=== PATIENT | male | born 1945 | race Caucasian/White ===

== ENCOUNTER 2018-12-25 19:16 | Emergency (ER) | payer OTHER ==
[2018-12-25] MEDS ORDERED: NA CHLORIDE 0.9% 500 ML ONE (19:55)
[2018-12-25] MEDS ORDERED: ONDANSETRON 4 MG/2 ML VIAL ONE ×2 (19:55→23:15)
[2018-12-25 19:56] LABS: Absolute Lymphocytes (CBC) 2.4 K/uL (0.7-4.9); Absolute Monocytes 0.8 K/uL (0.1-1.3); Absolute Neutrophil 4.2 K/uL (1.8-8.0); Eosinophils % 6.6 % (0-4.4); Hematocrit 39.1 % (39.6-49.0); Lymphocytes % 30.1 % (15.3-44.8); MPV 7.7 fL (7.6-11.3); RBC Red Blood Cell Count 4.02 M/uL (4.33-5.43)
[2018-12-25] MEDS ORDERED: FAMOTIDINE 20 MG/2 ML VIAL IV ONE (19:56)
[2018-12-25] MEDS ORDERED: NA CHLORIDE 0.9% 1,000 ML ONE (19:56)
[2018-12-25 19:57] LABS: Protime INR 1.02
--- NOTE | 2018-12-25 20:06 | RAD REPORT ---
EXAM DESCRIPTION: CT - Head Brain Wo Cont - 12/25/2018 7:58 pm CLINICAL HISTORY: nausea/vomiting;Dizziness COMPARISON: No comparisons TECHNIQUE: All CT scans are performed using dose optimization technique as appropriate and may inclu de automated exposure control or mA/KV adjustment according to patient size. FINDINGS: No intracranial hemorrhage, hydrocephalus or extra-axial fluid collection.Mild brain atrop hy.No areas of brain edema or evidence of midline shift. The paranasal sinuses and mastoids are clear. The calvarium is intact. IMPRESSION: No acute intracranial abnormality.
--- NOTE | 2018-12-25 20:07 | RAD REPORT ---
EXAM DESCRIPTION: RAD - Chest Single View - 12/25/2018 8:01 pm CLINICAL HISTORY: dizziness, vomiting Chest pain. COMPARISON: Head Brain Wo Cont dated 12/25/2018 FINDINGS: Portable technique limits examination quality. The lungs are diffusely emphysematous but grossly clear. The heart is normal in size. No displaced fr actures. IMPRESSION: Prominent COPD.
[2018-12-25 20:19] LABS: ALT/SGPT 19 U/L (12-78); AST/SGOT 25 U/L (15-37); Albumin 3.6 g/dL (3.4-5.0); Alkaline Phosphatase 72 U/L (45-117); BUN Blood Urea Nitrogen 4 mg/dL (7-18); Bicarbonate 25 mmol/L (21-32); Bilirubin Direct 0.2 mg/dL (0-0.2); Bilirubin Total 0.5 mg/dL (0.2-1.0); Glucose Level 107 mg/dL (74-106); Magnesium 1.6 mg/dL (1.8-2.4); NT PRO-BNP 62 pg/mL (<450); Potassium 3.3 mmol/L (3.5-5.1); Protein, Total 6.9 g/dL (6.4-8.2); Sodium Level 135 mmol/L (136-145); Troponin (Emerg Dept Use Only) < 0.02 ng/mL (0.0-0.045)
[2018-12-25] MEDS ORDERED: MECLIZINE HCL 12.5 MG TAB ONE (20:55)
[2018-12-25] MEDS ORDERED: MAGNESIUM SULFATE 1 gm IVPB 1 GM/100 ML BAG IV ONE (20:56)
[2018-12-25] MEDS ORDERED: POTASSIUM 25 MEQ EFFERV TAB ONE (20:56)
--- NOTE | 2018-12-25 23:13 | ER ---
Nurse's Notes [facility] Name: Piero Urias Jr Age: 73 yrs Sex: Male : 1945 Arrival Date: 12/25/2018 Time: 19:17 Bed 20 Private MD: Diagnosis: Nausea and vomiting;Dizziness and giddiness Presentation: 12/25 19:25 Presenting complaint: Patient states: "I have been getting dizzy and nauseous with jd3 ringing in my ears for a week now off and on.". Transition of care: patient was not received from another setting of care. Onset of symptoms was December 18, 2018. Risk Assessment: Do you want to hurt yourself or someone else? Patient reports no desire to harm self or others. Initial Sepsis Screen: Does the patient meet any 2 criteria? No. Patient's initial sepsis screen is negative. Does the patient have a suspected source of infection? No. Patient's initial sepsis screen is negative. Care prior to arrival: None. 19:25 Method Of Arrival: Wheelchair jd3 19:25 Acuity: JG 3 jd3 Historical: - Allergies: 19:29 No Known Allergies; jd3 - Home Meds: 19:29 "blood pressure med" [Active]; "prostate med" [Active]; jd3 - PMHx: 19:29 Hypertension; Cancer; jd3 - PSHx: 19:29 tongue; jd3 - Immunization history:: Adult Immunizations up to date. - Social history:: Smoking status: Patient uses tobacco products, smokes two packs cigarettes per day. - Ebola Screening: : Patient negative for fever greater than or equal to 101.5 degrees Fahrenheit, and additional compatible Ebola Virus Disease symptoms. Screenin:37 Abuse screen: Denies threats or abuse. Nutritional screening: No deficits noted. jd3 Tuberculosis screening: No symptoms or risk factors identified. Fall Risk IV access (20 points). Ambulatory Aid- Crutches/Cane/Walker (15 pts). Gait- Weak (10 pts.). Mental Status- Oriented to own ability (0 pts). Total Witt Fall Scale indicates High Risk Score (45 or more points). Fall prevention measures have been instituted. Side Rails Up X 2 Placed Close to Nursing Station Frequent Obs/Assessments Occuring Family Present and informed to notify staff if the need to leave the bedside. 19:40 VAN Screening: Arm Drift: Patient shows no arm weakness. Patient is VAN negative. jd3 Assessment: 19:31 General: Appears uncomfortable, Behavior is calm, cooperative, appropriate for age. jd3 Pain: Denies pain. Neuro: Level of Consciousness is awake, alert, obeys commands, Oriented to person, place, time, situation, Appropriate for age Gait is unsteady, Speech is normal, Facial symmetry appears normal, Intact Reports dizziness, headache since yesterday. Cardiovascular: Capillary refill < 3 seconds Patient's skin is warm and dry. Rhythm is irregular. Respiratory: Airway is patent Respiratory effort is even, unlabored, Respiratory pattern is regular, symmetrical, Denies shortness of breath. GI: Abdomen is round Abd is soft and non tender X 4 quads. Reports nausea, normal bowel habits, vomiting, Patient currently denies abdominal pain. : No signs and/or symptoms were reported regarding the genitourinary system. EENT: No signs and/or symptoms were reported regarding the EENT system. Derm: Skin is intact, Skin is dry, Skin is normal, Skin temperature is warm. Musculoskeletal: Circulation, motion, and sensation intact. Range of motion: intact in all extremities. 20:30 Reassessment: Patient appears in no apparent distress at this time. Patient and/or jd3 family updated on plan of care and expected duration. Pain level reassessed. Patient is alert, oriented x 3, equal unlabored respirations, skin warm/dry/pink. 21:15 Reassessment: Patient appears in no apparent distress at this time. Patient and/or jd3 family updated on plan of care and expected duration. Pain level reassessed. Patient is alert, oriented x 3, equal unlabored respirations, skin warm/dry/pink. 22:20 Reassessment: Patient appears in no apparent distress at this time. Patient and/or jd3 family updated on plan of care and expected duration. Pain level reassessed. Patient is alert, oriented x 3, equal unlabored respirations, skin warm/dry/pink. awaiting results and disposition. 22:42 Reassessment: pt ambulated with unsteady gait. jd3 23:35 Reassessment: Patient appears in no apparent distress at this time. Patient and/or jd3 family updated on plan of care and expected duration. Pain level reassessed. Patient is alert, oriented x 3, equal unlabored respirations, skin warm/dry/pink. Vital Signs: 19:30 BP 158 / 70; Pulse 68; Resp 16 S; Temp 97.6(O); Pulse Ox 100% on R/A; Weight 52.16 kg jd3 (R); Height 5 ft. 10 in. (177.80 cm) (R); Pain 0/10; 19:50 Pulse Ox 100% on R/A; cp 21:16 BP 129 / 63; Pulse 69; Resp 18 S; Pulse Ox 100% on R/A; jd3 22:20 BP 136 / 65; Pulse 69; Resp 17 S; Pulse Ox 100% on R/A; jd3 19:30 Body Mass Index 16.50 (52.16 kg, 177.80 cm) jd3 NIH Stroke Scale Scores: 19:40 NIHSS Score: 0 jd3 19:50 NIHSS Score: 0 cp ED Course: 19:17 Patient arrived in ED. am2 19:25 Wei Grant, CAIN is Primary Nurse. jd3 19:25 Bayron Beckwith PA is PHCP. cp 19:25 Kvng Saini MD is Attending Physician. cp 19:27 Triage completed. jd3 19:30 Arm band placed on. jd3 19:36 Inserted saline lock: 18 gauge in right forearm, using aseptic technique. Blood jd3 collected. 19:37 EKG done, by furniture technician. reviewed by Bayron RODRIGUEZ. jd3 19:38 Patient has correct armband on for positive identification. Placed in gown. Bed in low jd3 position. Call light in reach. Side rails up X 1. Adult w/ patient. 19:[address] nj 19:58 CT Head Brain wo Cont In Process Unspecified. EDMS 19:59 CT completed. Patient tolerated procedure well. Patient moved back from CT. vm2 20:01 XRAY Chest (1 view) In Process Unspecified. EDMS 21:[address] nj 21:38 CT completed. Patient tolerated procedure well. Patient moved back from CT. nj 21:51 CT Head Angio In Process Unspecified. EDMS 21:51 CT Neck Angio In Process Unspecified. EDMS 23:11 Dipak Tamez MD is Referral Physician. cp 23:34 No provider procedures requiring assistance completed. IV discontinued, intact, jd3 bleeding controlled, No redness/swelling at site. Pressure dressing applied. Administered Medications: 19:53 Drug: NS 0.9% 500 ml Route: IV; Rate: bolus; Site: right forearm; jd3 22:35 Follow up: Response: No adverse reaction; IV Status: Completed infusion jd3 19:53 Drug: NS 0.9% 1000 ml Route: IV; Rate: 100 ml/hr; Site: right forearm; jd3 23:36 Follow up: Response: No adverse reaction; IV Status: Order to discontinue infusion jd3 19:54 Drug: Zofran 4 mg Route: IVP; Site: right forearm; jd3 22:34 Follow up: Response: No adverse reaction jd3 19:54 Drug: Pepcid 20 mg Route: IVP; Site: right forearm; jd3 22:34 Follow up: Response: No adverse reaction jd3 20:51 Drug: Potassium Effervescent Tablet 25 mEq Route: PO; jd3 22:35 Follow up: Response: No adverse reaction jd3 20:52 Drug: Magnesium Sulfate 1 grams Route: IVPB; Infused Over: 1 hrs; Site: right forearm; jd3 22:36 Follow up: Response: No adverse reaction; IV Status: Completed infusion jd3 20:52 Drug: Meclizine 25 mg Route: PO; jd3 22:36 Follow up: Response: No adverse reaction jd3 23:06 Drug: Zofran 4 mg Route: IVP; Site: right forearm; jd3 23:34 Follow up: Response: No adverse reaction jd3 Point of Care Testing: Blood Glucose: 19:37 Blood Glucose: 118 mg/dL; jd3 Ranges: Outcome: 23:12 Discharge ordered by MD. cp 23:34 Discharged to home via wheelchair, with family. jd3 23:34 Condition: stable 23:34 Discharge instructions given to patient, family, Instructed on discharge instructions, follow up and referral plans. medication usage, Demonstrated understanding of instructions, follow-up care, medications, Prescriptions given X 2. 23:35 Patient left the ED. jd3 NIH Stroke Scale - NIH Stroke Score Date: 12/25/2018 Time: 19:40 Total Score = 0 1a. Level of Consciousness (LOC) - 0(Alert) 1b. Level of Consciousness (LOC) (Year \\T\\ Age) - 0(Both) 1c. LOC Commands (Open \\T\\ Closes Eyes/Activities Volunteer) - 0(Both) 2. Best Gaze (Lateral Gaze Paresis) - 0(Normal) 3. Visual Field Loss - 0(No visual loss) 4. Facial Palsy - 0(Normal) 5a. Left Arm: Motor (10-second hold) - 0(No drift) 5b. Right Arm: Motor (10-second hold) - 0(No drift) 6a. Left Leg: Motor (5-second hold - always test supine) - 0(No drift) 6b. Right Leg: Motor (5-second hold - always test supine) - 0(No drift) 7. Limb Ataxia (finger/nose \\T\\ heel/montano - test with eyes open) - 0(Absent) 8. Sensory Loss (pinprick arms/legs/face) - 0(Normal) 9. Best Language: Aphasia (description/naming/reading) - 0(No aphasia) 10. Dysarthria (speech clarity - read or repeat words) - 0(Normal) 11. Extinction and Inattention (visual/tactile/auditory/spatial/personal) - 0(No abnormality) Initials: jd3 NIH Stroke Scale - NIH Stroke Score Date: 12/25/2018 Time: 19:50 Total Score = 0 1a. Level of Consciousness (LOC) - 0(Alert) 1b. Level of Consciousness (LOC) (Year \\T\\ Age) - 0(Both) 1c. LOC Commands (Open \\T\\ Closes Eyes/Activities Volunteer) - 0(Both) 2. Best Gaze (Lateral Gaze Paresis) - 0(Normal) 3. Visual Field Loss - 0(No visual loss) 4. Facial Palsy - 0(Normal) 5a. Left Arm: Motor (10-second hold) - 0(No drift) 5b. Right Arm: Motor (10-second hold) - 0(No drift) 6a. Left Leg: Motor (5-second hold - always test supine) - 0(No drift) 6b. Right Leg: Motor (5-second hold - always test supine) - 0(No drift) 7. Limb Ataxia (finger/nose \\T\\ heel/montano - test with eyes open) - 0(Absent) 8. Sensory Loss (pinprick arms/legs/face) - 0(Normal) 9. Best Language: Aphasia (description/naming/reading) - 0(No aphasia) 10. Dysarthria (speech clarity - read or repeat words) - 0(Normal) 11. Extinction and Inattention (visual/tactile/auditory/spatial/personal) - 0(No abnormality) Initials: cp Signatures: Dispatcher [employer] EDMS Bayron Beckwith PA PA cp Jordan, Nathan nj Moreno, Amanda am2 Aundrea Resendiz2 Wei Grant RN RN jd3
--- NOTE | 2018-12-25 23:14 | EDPHYS ---
Physician Documentation [facility] Name: Piero Urias Jr Age: 73 yrs Sex: Male : 1945 Arrival Date: 12/25/2018 Time: 19:17 Bed 20 Private MD: ED Physician Kvng Saini HPI: 12/25 19:43 This 73 yrs old Male presents to ER via Wheelchair with complaints of cp Vomiting. 19:43 The patient presents to the emergency department with nausea, that is mild, vomiting, cp that is intermittent. Onset: The symptoms/episode began/occurred today. Associated signs and symptoms: Pertinent positives: dizziness and decreased hearing left ear times 1 week. Severity of symptoms: in the emergency department the symptoms are unchanged despite home interventions. Historical: - Allergies: 19:29 No Known Allergies; jd3 - Home Meds: 19:29 "blood pressure med" [Active]; "prostate med" [Active]; jd3 - PMHx: 19:29 Hypertension; Cancer; jd3 - PSHx: 19:29 tongue; jd3 - Immunization history:: Adult Immunizations up to date. - Social history:: Smoking status: Patient uses tobacco products, smokes two packs cigarettes per day. - Ebola Screening: : Patient negative for fever greater than or equal to 101.5 degrees Fahrenheit, and additional compatible Ebola Virus Disease symptoms. ROS: 19:45 Constitutional: Negative for body aches, chills, fever, poor PO intake. cp 19:45 Eyes: Negative for injury, pain, redness, and discharge. cp 19:45 ENT: Positive for ear pain, hearing loss, tinnitus, Negative for drainage from ear(s), rhinorrhea, sore throat, difficulty swallowing, difficulty handling secretions. 19:45 Neck: Negative for pain with movement, pain at rest, stiffness. 19:45 Cardiovascular: Negative for chest pain, edema, palpitations. 19:45 Respiratory: Negative for cough, shortness of breath, wheezing. 19:45 Abdomen/GI: Positive for nausea and vomiting, Negative for abdominal pain, diarrhea, constipation, black/tarry stool, rectal bleeding. 19:45 : Negative for urinary symptoms. 19:45 Skin: Negative for cellulitis, rash. 19:45 Neuro: Positive for dizziness, headache, Negative for altered mental status, speech changes, syncope, weakness. 19:45 All other systems are negative. Exam: 19:30 ECG was reviewed by the Attending Physician. cp 19:50 Constitutional: The patient appears in no acute distress, alert, awake, cp non-diaphoretic, non-toxic, well developed, well nourished. 19:50 Head/Face: Normocephalic, atraumatic. Eyes: Pupils equal round and reactive to light, cp extra-ocular motions intact. Lids and lashes normal. Conjunctiva and sclera are non-icteric and not injected. Cornea within normal limits. Periorbital areas with no swelling, redness, or edema. ENT: Nares patent. No nasal discharge, no septal abnormalities noted. Tympanic membranes are normal and external auditory canals are clear. Oropharynx with no redness, swelling, or masses, exudates, or evidence of obstruction, uvula midline. Mucous membranes moist. Neck: Trachea midline, no thyromegaly or masses palpated, and no cervical lymphadenopathy. Supple, full range of motion without nuchal rigidity, or vertebral point tenderness. No Meningismus. Chest/axilla: Normal chest wall appearance and motion. Nontender with no deformity. No lesions are appreciated. 19:50 Cardiovascular: Rate: normal, Rhythm: regular, Pulses: Pulses are 2+ in right radial artery and left radial artery. Edema: is not appreciated, JVD: is not appreciated. 19:50 Respiratory: the patient does not display signs of respiratory distress, Respirations: cp normal, no use of accessory muscles, no retractions, no splinting, no tachypnea, labored breathing, is not present, Breath sounds: decreased breath sounds, that are mild, throughout. 19:50 Abdomen/GI: Inspection: abdomen appears normal, Bowel sounds: active, all quadrants, cp Palpation: abdomen is soft and non-tender, in all quadrants. 19:50 Back: pain, is absent, ROM is normal. 19:50 Musculoskeletal/extremity: Exam is negative for deformity, injury. 19:50 Skin: cellulitis, is not appreciated, no rash present. 19:50 Neuro: Orientation: to person, place \\T\\ time. Mentation: is normal, Cerebellar function: Romberg testing is negative, normal finger to nose testing, heel to montano testing is normal, Motor: moves all fours, strength is normal, Sensation: no obvious gross deficits. Vital Signs: 19:30 BP 158 / 70; Pulse 68; Resp 16 S; Temp 97.6(O); Pulse Ox 100% on R/A; Weight 52.16 kg jd3 (R); Height 5 ft. 10 in. (177.80 cm) (R); Pain 0/10; 19:50 Pulse Ox 100% on R/A; cp 21:16 BP 129 / 63; Pulse 69; Resp 18 S; Pulse Ox 100% on R/A; jd3 22:20 BP 136 / 65; Pulse 69; Resp 17 S; Pulse Ox 100% on R/A; jd3 19:30 Body Mass Index 16.50 (52.16 kg, 177.80 cm) jd3 NIH Stroke Scale Scores: 19:40 NIHSS Score: 0 jd3 19:50 NIHSS Score: 0 cp MDM: 19:26 Patient medically screened. cp 20:00 Differential diagnosis: gastritis, viral gastroenteritis, gastroenteritis, alcohol cp intoxication, CVA, vertigo, acute CA, cardiac arrythmia. 23:10 Data reviewed: vital signs, nurses notes, lab test result(s), EKG, radiologic studies, cp CT scan, plain films. 23:10 Test interpretation: by ED physician or midlevel provider: ECG, for acute infiltrates. Counseling: I had a detailed discussion with the patient and/or guardian regarding: the historical points, exam findings, and any diagnostic results supporting the discharge/admit diagnosis, lab results, radiology results, the need for outpatient follow up, a neurologist, to return to the emergency department if symptoms worsen or persist or if there are any questions or concerns that arise at home. Response to treatment: the patient's symptoms have markedly improved after treatment, VSS. Dizziness and nausea improved. Patient observed ambulating in ED w/o assistance. Will discharge to home for continued monitoring. 12/25 19:38 Order name: ETOH Level; Complete Time: 20:33 cp 12/25 20:33 Interpretation: Abnormal: ETOH 134. cp 12/25 19:38 Order name: Basic Metabolic Panel; Complete Time: 20:33 cp 12/25 20:33 Interpretation: Normal except: NA 135; K 3.3; GLUC 107; BUN 4. cp 12/25 19:38 Order name: CBC with Diff; Complete Time: 20:06 cp 12/25 20:07 Interpretation: Normal except: RBC 4.02; HCT 39.1; EOSINOPHIL % 6.6. cp 12/25 19:38 Order name: LFT's; Complete Time: 20:33 cp 12/25 19:38 Order name: Magnesium; Complete Time: 20:33 cp 18 20:33 Interpretation: Abnormal: MG 1.6. cp 12/25 19:38 Order name: NT PRO-BNP; Complete Time: 20:33 cp 12/25 19:38 Order name: CT Head Brain wo Cont; Complete Time: 20:11 cp 18 20:11 Interpretation: Report reviewed. cp 12/25 19:38 Order name: PT-INR; Complete Time: 20:06 cp 12/25 20:07 Interpretation: Reviewed. cp 12/25 19:38 Order name: Troponin (emerg Dept Use Only); Complete Time: 20:33 cp 12/25 19:38 Order name: XRAY Chest (1 view); Complete Time: 20:11 cp 12/25 21:24 Order name: CT Head Angio cp 12/25 21:24 Order name: CT Neck Angio cp 12/25 19:38 Order name: EKG; Complete Time: 19:39 cp 12/25 19:38 Order name: Cardiac monitoring; Complete Time: 19:40 cp 12/25 19:38 Order name: EKG - Nurse/Tech; Complete Time: 19:40 cp 12/25 19:38 Order name: IV Saline Lock; Complete Time: 19:40 cp 18 19:38 Order name: Labs collected and sent; Complete Time: 19:54 cp 12/25 19:38 Order name: O2 Per Protocol; Complete Time: 19:39 cp 12/25 19:38 Order name: O2 Sat Monitoring; Complete Time: 19:39 cp 18 21:19 Order name: PO challenge; Complete Time: 21:23 cp 18 22:22 Order name: PO challenge; Complete Time: 22:32 cp 12/25 22:22 Order name: Misc. Order: ambulate patient; Complete Time: 22:41 cp EC:30 Rate is 68 beats/min. Rhythm is regular. MD interval is normal. QRS interval is cp prolonged at 136 msec. QT interval is normal. T waves are Flattened in leads III, aVL. Interpreted by me. Reviewed by me. Administered Medications: 19:53 Drug: NS 0.9% 500 ml Route: IV; Rate: bolus; Site: right forearm; jd3 22:35 Follow up: Response: No adverse reaction; IV Status: Completed infusion jd3 19:53 Drug: NS 0.9% 1000 ml Route: IV; Rate: 100 ml/hr; Site: right forearm; jd3 23:36 Follow up: Response: No adverse reaction; IV Status: Order to discontinue infusion jd3 19:54 Drug: Zofran 4 mg Route: IVP; Site: right forearm; jd3 22:34 Follow up: Response: No adverse reaction jd3 19:54 Drug: Pepcid 20 mg Route: IVP; Site: right forearm; jd3 22:34 Follow up: Response: No adverse reaction jd3 20:51 Drug: Potassium Effervescent Tablet 25 mEq Route: PO; jd3 22:35 Follow up: Response: No adverse reaction jd3 20:52 Drug: Magnesium Sulfate 1 grams Route: IVPB; Infused Over: 1 hrs; Site: right forearm; jd3 22:36 Follow up: Response: No adverse reaction; IV Status: Completed infusion jd3 20:52 Drug: Meclizine 25 mg Route: PO; jd3 22:36 Follow up: Response: No adverse reaction jd3 23:06 Drug: Zofran 4 mg Route: IVP; Site: right forearm; jd3 23:34 Follow up: Response: No adverse reaction jd3 Point of Care Testing: Blood Glucose: 19:37 Blood Glucose: 118 mg/dL; jd3 Ranges: Critical Glucose Levels:Adult <50 mg/dl or >400 mg/dl <40 mg/dl or >180 mg/dl Disposition: 12/26 03:29 Co-signature as Attending Physician, Kvng Saini MD Available for consultation at ps1 all times. . Disposition: 12/25/18 23:12 Discharged to Home. Impression: Nausea and vomiting, Dizziness and giddiness. - Condition is Stable. - Discharge Instructions: Dizziness, Nausea and Vomiting, Adult, David Maneuver Self-Care. - Prescriptions for Meclizine 25 mg Oral Tablet - take 1 tablet by ORAL route every 8 hours As needed; 30 tablet. Zofran 4 mg Oral Tablet - take 1 tablet by ORAL route every 12 hours As needed; 20 tablet. - Medication Reconciliation Form, Thank You Letter, Antibiotic Education, Prescription Opioid Use form. - Follow up: Dipak Tamez MD; When: 2 - 3 days; Reason: Recheck today's complaints. - Problem is new. - Symptoms have improved. NIH Stroke Scale - NIH Stroke Score Date: 12/25/2018 Time: 19:40 Total Score = 0 1a. Level of Consciousness (LOC) - 0(Alert) 1b. Level of Consciousness (LOC) (Year \\T\\ Age) - 0(Both) 1c. LOC Commands (Open \\T\\ Closes Eyes/Poultry Processor) - 0(Both) 2. Best Gaze (Lateral Gaze Paresis) - 0(Normal) 3. Visual Field Loss - 0(No visual loss) 4. Facial Palsy - 0(Normal) 5a. Left Arm: Motor (10-second hold) - 0(No drift) 5b. Right Arm: Motor (10-second hold) - 0(No drift) 6a. Left Leg: Motor (5-second hold - always test supine) - 0(No drift) 6b. Right Leg: Motor (5-second hold - always test supine) - 0(No drift) 7. Limb Ataxia (finger/nose \\T\\ heel/montano - test with eyes open) - 0(Absent) 8. Sensory Loss (pinprick arms/legs/face) - 0(Normal) 9. Best Language: Aphasia (description/naming/reading) - 0(No aphasia) 10. Dysarthria (speech clarity - read or repeat words) - 0(Normal) 11. Extinction and Inattention (visual/tactile/auditory/spatial/personal) - 0(No abnormality) Initials: jd3 NIH Stroke Scale - NIH Stroke Score Date: 12/25/2018 Time: 19:50 Total Score = 0 1a. Level of Consciousness (LOC) - 0(Alert) 1b. Level of Consciousness (LOC) (Year \\T\\ Age) - 0(Both) 1c. LOC Commands (Open \\T\\ Closes Eyes/Poultry Processor) - 0(Both) 2. Best Gaze (Lateral Gaze Paresis) - 0(Normal) 3. Visual Field Loss - 0(No visual loss) 4. Facial Palsy - 0(Normal) 5a. Left Arm: Motor (10-second hold) - 0(No drift) 5b. Right Arm: Motor (10-second hold) - 0(No drift) 6a. Left Leg: Motor (5-second hold - always test supine) - 0(No drift) 6b. Right Leg: Motor (5-second hold - always test supine) - 0(No drift) 7. Limb Ataxia (finger/nose \\T\\ heel/montano - test with eyes open) - 0(Absent) 8. Sensory Loss (pinprick arms/legs/face) - 0(Normal) 9. Best Language: Aphasia (description/naming/reading) - 0(No aphasia) 10. Dysarthria (speech clarity - read or repeat words) - 0(Normal) 11. Extinction and Inattention (visual/tactile/auditory/spatial/personal) - 0(No abnormality) Initials: cp Signatures: Dispatcher [employer] EDMS Bayron Beckwith PA PA cp Davies, Jonathon RN RN jd3 Kvng Saini MD MD ps1 Corrections: (The following items were deleted from the chart) 12/25 23:35 23:12 12/25/2018 23:12 Discharged to Home. Impression: Nausea and vomiting; jd3 Dizziness and giddiness. Condition is Stable. Discharge Instructions: David Maneuver Self-Care. Prescriptions for Meclizine 25 mg Oral Tablet - take 1 tablet by ORAL route every 8 hours As needed; 30 tablet, Zofran 4 mg Oral Tablet - take 1 tablet by ORAL route every 12 hours As needed; 20 tablet. and Forms are Medication Reconciliation Form, Thank You Letter, Antibiotic Education, Prescription Opioid Use. Follow up: Dipak Tamez; When: 2 - 3 days; Reason: Recheck today's complaints. Problem is new. Symptoms have improved. cp
--- NOTE | 2018-12-26 06:13 | EKG ---
Test Date: 2018-12-25 Test Time: 19:22:08 [employer]: GRGEORY MEASUREMENT RESULTS: Intervals: Rate: 68 WY: 138 QRSD: 136 QT: 444 QTc: 472 Harbinger: P: WY: 138 QRS: -49 T: 30 INTERPRETIVE STATEMENTS: Normal sinus rhythm Left axis deviation Right bundle branch block Abnormal ECG No previous ECG available for comparison Electronically Signed On 12-26-18 06:12:03 CDT by Adrian Galan
--- NOTE | 2018-12-26 10:49 | RAD REPORT ---
EXAM DESCRIPTION: CT - Head angio - 12/25/2018 10:22 pm CLINICAL HISTORY: The patient is 73 years old and is Male; Headache;Dizziness TECHNIQUE: Axial computed tomography images of the head and neck with intravenous contrast during th e arterial phase of contrast enhancement. Sagittal and coronal reformatted images were created and reviewed. This CT exam was performed using one or more of the following dose reduction techniques: automated exposure control, adjustment of the mA and/or kV according to patient size, and/or use of iterative reconstruction technique. COMPARISON: CT head without contrast of the same day. FINDINGS: HEAD: RIGHT ANTERIOR CEREBRAL ARTERY: Unremarkable. No occlusion or significant stenosis. No aneurys m. RIGHT MIDDLE CEREBRAL ARTERY: Unremarkable. No occlusion or significant stenosis. No aneurysm. RIGHT POSTERIOR CEREBRAL ARTERY: Unremarkable. No occlusion or significant stenosis. No aneury sm. LEFT ANTERIOR CEREBRAL ARTERY: Unremarkable. No occlusion or significant stenosis. No aneurysm . LEFT MIDDLE CEREBRAL ARTERY: Unremarkable. No occlusion or significant stenosis. No aneurysm. LEFT POSTERIOR CEREBRAL ARTERY: Unremarkable. No occlusion or significant stenosis. No aneurys m. BASILAR ARTERY: Unremarkable. No occlusion or significant stenosis. No aneurysm. BRAIN: Prominence of the cerebral sulci and cisterns. Confluent periventricular hypodensity. No hemorrhage or herniation. VENTRICLES: No hydrocephalus. NECK: RIGHT COMMON CAROTID ARTERY: Unremarkable. No significant stenosis. No dissection or occlusion . RIGHT INTERNAL CAROTID ARTERY: Unremarkable. No significant stenosis. No dissection or occlusi on. RIGHT EXTERNAL CAROTID ARTERY: Unremarkable. No occlusion. RIGHT VERTEBRAL ARTERY: Unremarkable. No significant stenosis. No dissection or occlusion. LEFT COMMON CAROTID ARTERY: Unremarkable. No significant stenosis. No dissection or occlusion. LEFT INTERNAL CAROTID ARTERY: Unremarkable. No significant stenosis. No dissection or occlusio n. LEFT EXTERNAL CAROTID ARTERY: Unremarkable. No occlusion. LEFT VERTEBRAL ARTERY: Unremarkable. No significant stenosis. No dissection or occlusion. LARYNX: There is thickening of the epiglottis and aryepiglottic fold, left greater than right ther e is prominence of the left lung base. TRACHEA: Prominence of the trachea. PLEURAL SPACE: Apical chronic lung changes and pleural thickening. No focal consolidation, pleural effusion or pneumothorax. HEAD and NECK: BONES/JOINTS: No acute fracture. No dislocation. SOFT TISSUES: Partial evaluation of amorphous thickening of left facial soft tissues. The left sub mandibular gland is absent. No mass. TUBES, LINES AND DEVICES: Calcified and noncalcified plaque of the proximal left ICA with residual lumen measuring 2.9 mm. Findings compared to 4.5 mm resulting in less than 50% stenosis. Calcified and noncalcified plaque of the right carotid bulb with a residual lumen of 2.9 cm compared to 5 mm resulting in less than 50% stenosis. CAROTID STENOSIS REFERENCE USING NASCET CRITERIA: % ICA stenosis = (1 - narrowest ICA diameter/diameter of distal cervical ICA) x 100. Mild - Moderate - 50-69% stenosis. Severe - 70-94% stenosis. Near occlusion - 95-99% stenosis. Occluded - 100% stenosis. IMPRESSION: 1. No intracranial large vessel occlusion or aneurysm. 2. Calcified and noncalcified plaque in the bilateral carotid bulb and proximal ICAs with less than 50% stenosis bilaterally. 3. Continued evidence of cerebral volume loss and chronic small vessel ischemic changes. 4. Partial evaluation of postsurgical changes of the left facial and cervical soft tissues with res ection of left submandibular gland and amorphous soft tissue thickening. 5. Incompletely characterized asymmetric thickening of the left epiglottis and aryepiglottic fold wit h asymmetric effacement of the vallecula. Finding could represent neoplastic process or post treatmen t changes. Correlate with past medical and past surgical history. 6. Chronic apical lung changes and pleural thickening. Electronically signed by: Bill Quiroz DO 12/25/2018 10:07 PM CDT Due to temporary technical issues with the PACS/Fluency reporting system, reports are being signed by the in house radiologist as a courtesy to ensure prompt reporting. The interpreting radiologist is f ully responsible for the content of the report.
== END 2018-12-25 23:35 | disposition home or self-care (01) ==
LOC: ER 19:16
DX: R42 Dizziness and giddiness (principal); I10 Essential (primary) hypertension; F17.210 Nicotine dependence, cigarettes, uncomplicated; Z85.9 Personal history of malignant neoplasm, unspecified
CPT/HCPCS: 36415; 70450; 70496; 70498; 71045; 80048; 80076; 80320; 82962; 83735; 83880; 84484; 85025; 85610; 93005; 96361; 96365; 96366; 96375; 99284; J2405; J3475; J7030; Q9967

== ENCOUNTER 2020-05-05 08:27 | Emergency (ER) | payer OTHER ==
--- NOTE | 2020-05-05 09:21 | EDPHYS ---
Physician Documentation [facility] Name: Piero Urias Jr Age: 74 yrs Sex: Male : 1945 Arrival Date: 05/05/2020 Time: 08:29 Bed 13 Private MD: ED Physician Doug Luna HPI: 05/05 08:37 This 74 yrs old Male presents to ER via Unassigned with complaints of Problem rn With Feeding Tube. 08:37 Reports heard a pop last night, feeding tube came out this AM, thinks balloon popped, rn no other acute problems or complaints. . Onset: The symptoms/episode began/occurred this morning. Severity of symptoms: At their worst the symptoms were mild in the emergency department the symptoms are unchanged. The patient has not experienced similar symptoms in the past. Historical: - Allergies: 08:46 No Known Allergies; sv - Home Meds: 09:03 "blood pressure med" [Active]; "prostate med" [Active]; tw2 - PMHx: 08:46 Hypertension; sv 08:47 Oral cancer; sv - PSHx: 08:46 tongue; sv 09:03 PEG tube; tw2 - Immunization history:: Adult Immunizations. - Family history:: not pertinent. - Social history:: Smoking status: . - Hospitalizations: : No recent hospitalization is reported. ROS: 08:37 Constitutional: Negative for fever, chills Abdomen/GI: Negative for abdominal pain, rn nausea, vomiting, diarrhea, and constipation. Exam: 08:37 Constitutional: This is a well developed, well nourished patient who is awake, alert, rn and in no acute distress. Abdomen/GI: Soft, non-tender, stoma still patent. Vital Signs: 08:46 BP 144 / 65; Pulse 75; Resp 18; Temp 97.9(A); Pulse Ox 95% on R/A; Weight 40.82 kg (R); tw2 Height 5 ft. 10 in. (177.80 cm); Pain 0/10; 09:39 BP 139 / 70; Pulse 67; Resp 17; Pulse Ox 100% on R/A; tw2 08:46 Body Mass Index 12.91 (40.82 kg, 177.80 cm) tw2 Procedures: 08:59 G-tube placement: a 16 Frisian catheter was placed, by the ED physician, Doug Luna MD. rn MDM: 08:33 Patient medically screened. rn 08:59 Differential Diagnosis feeding tube displacement. Data reviewed: vital signs, nurses rn notes, and as a result, I will discharge patient. Counseling: I had a detailed discussion with the patient and/or guardian regarding: the historical points, exam findings, and any diagnostic results supporting the discharge/admit diagnosis, the need for outpatient follow up, to return to the emergency department if symptoms worsen or persist or if there are any questions or concerns that arise at home. Response to treatment: the patient's symptoms have markedly improved after treatment, and as a result, I will discharge patient. Special discussion: I discussed with the patient/guardian in detail that at this point there is no indication for admission to the hospital. It is understood, however, that if the symptoms persist or worsen the patient needs to return immediately for re-evaluation. 05/05 09:02 Order name: ENTEROSTOMY TUBE CHECK W/CONTR; Complete Time: 09:37 EDHI Administered Medications: No medications were administered Disposition: 05/05/20 09:21 Discharged to Home. Impression: Encounter for feeding tube replacement. - Condition is Stable. - Discharge Instructions: PEG Tube Home Guide. - Medication Reconciliation Form, Thank You Letter, Antibiotic Education, Prescription Opioid Use form. - Follow up: Private Physician; When: As needed; Reason: Recheck today's complaints, Re-evaluation by your physician. - Problem is new. - Symptoms are resolved. Signatures: Dispatcher [employer] [facility] Danna Allred RN RN sv Nieto, Roman, MD MD rn Wise, Tara, RN RN tw2 Corrections: (The following items were deleted from the chart) 08:38 08:37 Constitutional: Negative for fever, chills, and weight loss, Abdomen/GI: Negative rn for abdominal pain, nausea, vomiting, diarrhea, and constipation, rn 09:02 08:59 Abdomen 1 View (KUB)+RAD.RAD.BRZ ordered. [facility] 09:55 09:21 05/05/2020 09:21 Discharged to Home. Impression: Encounter for feeding tube tw2 replacement. Condition is Stable. Discharge Instructions: PEG Tube Home Guide. Forms are Medication Reconciliation Form, Thank You Letter, Antibiotic Education, Prescription Opioid Use. Follow up: Private Physician; When: As needed; Reason: Recheck today's complaints, Re-evaluation by your physician. Problem is new. Symptoms are resolved. rn
--- NOTE | 2020-05-05 09:21 | ER ---
Nurse's Notes [facility] Name: Piero Urias Jr Age: 74 yrs Sex: Male : 1945 Arrival Date: 05/05/2020 Time: 08:29 Bed 13 Private MD: Diagnosis: Encounter for feeding tube replacement Presentation: 05/05 08:46 Chief complaint: Patient's son or daughter states: he has oral cancer and you can see tw2 it on the LEFT side of his face, and has had a feeding tube for about 10 months now, home on hospice, [facility]. he said yesterday he heard the balloon pop yesterday but he said it just came out about an hour ago. Coronavirus screen: Client denies travel out of the [place] in the last 14 days. At this time, the client does not indicate any symptoms associated with coronavirus-19. Ebola Screen: Patient denies travel to an Ebola-affected area in the 21 days before illness onset. Initial Sepsis Screen: Does the patient meet any 2 criteria? No. Patient's initial sepsis screen is negative. Does the patient have a suspected source of infection? No. Patient's initial sepsis screen is negative. Risk Assessment: Do you want to hurt yourself or someone else? Patient reports no desire to harm self or others. Onset of symptoms was May 05, 2020. 08:46 Method Of Arrival: Wheelchair tw2 08:46 Acuity: JG 3 tw2 Triage Assessment: 08:50 General: Appears in no apparent distress. slender, Behavior is calm, cooperative, tw2 appropriate for age. Pain: Denies pain. Historical: - Allergies: 08:46 No Known Allergies; sv - Home Meds: 09:03 "blood pressure med" [Active]; "prostate med" [Active]; tw2 - PMHx: 08:46 Hypertension; sv 08:47 Oral cancer; sv - PSHx: 08:46 tongue; sv 09:03 PEG tube; tw2 - Immunization history:: Adult Immunizations. - Family history:: not pertinent. - Social history:: Smoking status: . - Hospitalizations: : No recent hospitalization is reported. Screenin:45 Abuse screen: Denies threats or abuse. Denies injuries from another. Nutritional sv screening: No deficits noted. Tuberculosis screening: No symptoms or risk factors identified. Fall Risk None identified. Assessment: 08:50 General: Appears in no apparent distress. slender, Behavior is calm, cooperative, tw2 appropriate for age. Pain: Denies pain. Neuro: Level of Consciousness is awake, alert, obeys commands, Oriented to person, place, time, situation. Cardiovascular: Heart tones S1 S2 Patient's skin is warm and dry. Respiratory: Airway is patent Respiratory effort is even, unlabored, Respiratory pattern is regular, symmetrical. GI: Abdomen is flat, peg tube insertion site clean, no s\\T\\s of infection noted Bowel sounds present X 4 quads. : No signs and/or symptoms were reported regarding the genitourinary system. EENT: No signs and/or symptoms were reported regarding the EENT system. Derm: appears to be a large growth on the right lower jaw and side of pts face. Musculoskeletal: Range of motion: intact in all extremities. 08:55 Reassessment: Dr Luna at the bedside to replace the PEG tube. sv 09:40 Reassessment: Patient appears in no apparent distress at this time. No changes from tw2 previously documented assessment. Patient and/or family updated on plan of care and expected duration. Pain level reassessed. Patient is alert, oriented x 3, equal unlabored respirations, skin warm/dry/pink. 09:55 Reassessment: Patient appears in no apparent distress at this time. No changes from tw2 previously documented assessment. Patient and/or family updated on plan of care and expected duration. Pain level reassessed. Patient is alert, oriented x 3, equal unlabored respirations, skin warm/dry/pink. Vital Signs: 08:46 BP 144 / 65; Pulse 75; Resp 18; Temp 97.9(A); Pulse Ox 95% on R/A; Weight 40.82 kg (R); tw2 Height 5 ft. 10 in. (177.80 cm); Pain 0/10; 09:39 BP 139 / 70; Pulse 67; Resp 17; Pulse Ox 100% on R/A; tw2 08:46 Body Mass Index 12.91 (40.82 kg, 177.80 cm) tw2 ED Course: 08:29 Patient arrived in ED. as 08:32 Doug Luna MD is Attending Physician. rn 08:45 Arm band placed on. sv 08:45 Patient has correct armband on for positive identification. Bed in low position. Call light in reach. Side rails up X 1. Pulse ox on. NIBP on. Door closed. Warm blanket given. Pillow given. Head of bed elevated. 08:46 Nasreen Guajardo, RN is Primary Nurse. tw2 08:50 Triage completed. tw2 09:10 PEG tube insertion 16f, pt tolerated well. tw2 09:14 X-ray(s) taken. sv 09:21 ENTEROSTOMY TUBE CHECK W/CONTR In Process Unspecified. EDMS 09:55 Patient did not have IV access during this emergency room visit. tw2 Administered Medications: No medications were administered Outcome: :21 Discharge ordered by . rn 09:55 Patient left the ED. tw2 09:55 Discharged to home via ambulance. tw2 09:55 Condition: stable 09:55 Discharge instructions given to patient, Instructed on discharge instructions, follow up and referral plans. Demonstrated understanding of instructions, follow-up care. Signatures: Dispatcher [employer] Danna Burgos, Rachel Chapa RN, Roman, MD MD rn Wise, Tara, RN RN tw2
--- NOTE | 2020-05-05 09:33 | RAD REPORT ---
EXAM DESCRIPTION: RAD - ENTEROSTOMY TUBE CHECK W/CONTR - 05/05/2020 9:21 am CLINICAL HISTORY: Gastrostomy tube placement FINDINGS: Contrast was administered into the percutaneous gastrostomy tube. The stomach is opacified .. No extravasation contrast No fluoroscopy performed
[2020-05-09 23:27] VITALS: TEMP 97.9
[2020-05-09 23:28] VITALS: BP 139/70; O2SAT 100
== END 2020-05-05 09:55 | disposition home or self-care (01) ==
LOC: ER 08:27
DX: Z43.1 Encounter for attention to gastrostomy (principal); I10 Essential (primary) hypertension; Z85.819 Personal history of malignant neoplasm of unspecified site of lip, oral cavity, and pharynx
CPT/HCPCS: 49465; 99283

== ENCOUNTER 2020-05-20 10:47 | Emergency (ER) | payer OTHER ==
--- NOTE | 2020-05-20 13:18 | RAD REPORT ---
EXAM DESCRIPTION: RAD - ENTEROSTOMY TUBE CHECK W/CONTR - 05/20/2020 1:09 pm CLINICAL HISTORY: Gastrostomy tube placement FINDINGS: Contrast was administered into the percutaneous gastrostomy tube. The stomach is opacified . No extravasation of contrast is noted Zero fluoroscopy performed. Zero fluoroscopic spot images obtained
--- NOTE | 2020-05-20 13:21 | EDPHYS ---
Physician Documentation [facility] Name: Piero Urias Jr Age: 74 yrs Sex: Male : 1945 Arrival Date: 05/20/2020 Time: 10:53 Bed 15 Private MD: ED Physician Stella Null HPI: 05/20 12:00 This 74 yrs old Male presents to ER via Wheelchair with complaints of Feeding cp Tube Problem. 12:00 The patient represents for recheck after previously being evaluated for leakage of cp gastrostomy tube. 12:00 The patient was previously evaluated in the emergency department 05/05/2020. cp 12:00 Previous care: gastrostomy tube replaced. cp Historical: - Allergies: 11:17 No Known Allergies; ll1 - PMHx: 11:17 Hypertension; oral cancer; ll1 - PSHx: 11:17 tongue; PEG tube; ll1 - Immunization history:: Flu vaccine is up to date. - Social history:: Smoking status: unknown. ROS: 12:05 Constitutional: Negative for body aches, chills, fever, poor PO intake. cp 12:05 Cardiovascular: Negative for chest pain. cp 12:05 Respiratory: Negative for cough, shortness of breath, wheezing. 12:05 Abdomen/GI: Negative for abdominal pain, nausea, vomiting, and diarrhea. 12:05 Skin: Negative for cellulitis, rash. 12:05 All other systems are negative. Exam: 12:10 Constitutional: The patient appears in no acute distress, alert, awake, non-toxic, well cp developed, frail. 12:10 Head/Face: Normocephalic, atraumatic. cp 12:10 Chest/axilla: Inspection: normal, Palpation: is normal, no crepitus, no tenderness. 12:10 Cardiovascular: Rate: normal. 12:10 Respiratory: the patient does not display signs of respiratory distress, Respirations: normal, no use of accessory muscles, no retractions, labored breathing, is not present, Breath sounds: are clear throughout. 12:10 Abdomen/GI: Inspection: left upper abdomen with gastrostomy tube that appears in place, very mild erythema surrounding gastric stoma with no swelling noted. Vital Signs: 11:13 BP 138 / 66; Pulse 68; Resp 17; Temp 97.2; Pulse Ox 100% ; Pain 0/10; ll1 14:30 BP 126 / 64; Pulse 79; Resp 16; Pulse Ox 95% ; Pain 0/10; ll1 Procedures: 13:15 G-tube placement: a 16 Persian catheter was placed, by the ED physician, Bayron RODRIGUEZ cp replaced. MDM: 10:59 Patient medically screened. cp 12:45 ED course: As radiology special procedure tech was checking placement and patency of gastrostomy tube, cp tube became came out of gastric opening. Will replace gastrostomy tube with same 16F size. 13:20 Data reviewed: vital signs, nurses notes, radiologic studies, plain films, and as a cp result, I will discharge patient. 13:20 Counseling: I had a detailed discussion with the patient and/or guardian regarding: the cp historical points, exam findings, and any diagnostic results supporting the discharge/admit diagnosis, radiology results, to return to the emergency department if symptoms worsen or persist or if there are any questions or concerns that arise at home. 05/20 11:48 Order name: PEG Tube Check w/contrast; Complete Time: 13:25 cp 05/20 13:25 Order name: Misc. Order: abdominal binder to cover PEG tube; Complete Time: 14:32 cp Administered Medications: No medications were administered Disposition: 13:25 Chart complete. cp 16:17 Co-signature as Attending Physician, Stella Null MD. ma2 Disposition: 05/20/20 13:21 Discharged to Home. 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 - Condition is Stable. - Discharge Instructions: PEG Tube Home Guide. - Medication Reconciliation Form, Thank You Letter, Antibiotic Education, Prescription Opioid Use form. - Follow up: Private Physician; When: As needed; Reason: Worsening of condition. - Problem is new. - Symptoms have improved. Signatures: Dispatcher [employer] EDMS Bayron Beckwith PA PA cp Alzahri, Mohammad, MD MD ma2 Lj Almonte jp3 Alfredo Olmedo RN RN ll1 Corrections: (The following items were deleted from the chart) 14:14 13:21 05/20/2020 13:21 Discharged to Home. Impression: Gastrostomy complications - jp3 replacement of feeding tube. Condition is Stable. Forms are Medication Reconciliation Form, Thank You Letter, Antibiotic Education, Prescription Opioid Use. Follow up: Private Physician; When: As needed; Reason: Worsening of condition. Problem is new. Symptoms have improved. cp
--- NOTE | 2020-05-20 13:21 | ER ---
Nurse's Notes [facility] Name: Piero Urias Jr Age: 74 yrs Sex: Male : 1945 Arrival Date: 05/20/2020 Time: 10:53 Bed 15 Private MD: Diagnosis: Gastrostomy complications-replacement of feeding tube Presentation: 05/20 11:13 Chief complaint: Patient states: Redness and drainage from feeding tube entrance site ll1 noticed today. No known fever at home. Patient's son or daughter states: Bridgette SON [phone]. States they prefer a "button" feeding tube. Coronavirus screen: Client denies travel out of the [place] in the last 14 days. At this time, the client does not indicate any symptoms associated with coronavirus-19. Ebola Screen: Patient denies travel to an Ebola-affected area in the 21 days before illness onset. Initial Sepsis Screen: Does the patient meet any 2 criteria? No. Patient's initial sepsis screen is negative. Risk Assessment: Do you want to hurt yourself or someone else? Patient reports no desire to harm self or others. Onset of symptoms was May 20, 2020. 11:13 Method Of Arrival: Wheelchair ll1 11:13 Acuity: JG 3 ll1 14:35 Initial Sepsis Screen: Does the patient have a suspected source of infection? Yes: Skin ll1 breakdown/wound. Triage Assessment: 14:34 General: Appears in no apparent distress. Behavior is calm, cooperative. ll1 Historical: - Allergies: 11:17 No Known Allergies; ll1 - PMHx: 11:17 Hypertension; oral cancer; ll1 - PSHx: 11:17 tongue; PEG tube; ll1 - Immunization history:: Flu vaccine is up to date. - Social history:: Smoking status: unknown. Screenin:20 Fall Risk Secondary diagnosis (15 points) impaired mobility, CA. Ambulatory Aid- ll1 Crutches/Cane/Walker (15 pts). Gait- Weak (10 pts.). Total Witt Fall Scale indicates High Risk Score (45 or more points). Fall prevention measures have been instituted. Side Rails Up X 2 Placed Close to Nursing Station Frequent Obs/Assessments Occuring As available patient and family educated on Fall Prevention Program and Strategies. 14:33 Abuse screen: Denies threats or abuse. Nutritional screening: No deficits noted. ll1 Tuberculosis screening: No symptoms or risk factors identified. Assessment: 13:20 General: Appears in no apparent distress. Behavior is calm, cooperative. Pain: Denies ll1 pain. Neuro: No deficits noted. Cardiovascular: No deficits noted. Respiratory: No deficits noted. GI: Abdomen is flat, PEG tube Site reddened. Site with drainage. barely in under skin Bowel sounds present X 4 quads. Abd is soft and non tender X 4 quads. Reports PEG tube pulled out and was leaking. 14:00 Reassessment: Patient and/or family updated on plan of care and expected duration. Pain ll1 level reassessed. Patient is alert, oriented x 3, equal unlabored respirations, skin warm/dry/pink. 16 Luxembourger PEG tube inserted by Marium Beckwith. Abdominal binder used to secure site. Vital Signs: 11:13 BP 138 / 66; Pulse 68; Resp 17; Temp 97.2; Pulse Ox 100% ; Pain 0/10; ll1 14:30 BP 126 / 64; Pulse 79; Resp 16; Pulse Ox 95% ; Pain 0/10; ll1 ED Course: 10:53 Patient arrived in ED. mr 10:58 Bayron Beckwith PA is PHCP. cp 10:58 Stella Null MD is Attending Physician. cp 11:13 Alfredo Olmedo, CAIN is Primary Nurse. ll1 11:16 Triage completed. ll1 11:17 Arm band placed on Patient placed in an exam room, on a stretcher. ll1 13:08 PEG Tube Check w/contrast In Process Unspecified. EDMS 14:34 No provider procedures requiring assistance completed. Patient did not have IV access ll1 during this emergency room visit. 14:35 Patient has correct armband on for positive identification. Placed in gown. Bed in low ll1 position. Call light in reach. Side rails up X 1. Administered Medications: No medications were administered Outcome: 13:21 Discharge ordered by . cp 14:14 Patient left the ED. jp3 14:34 Discharged to home via wheelchair. ll1 14:34 Condition: stable 14:34 Discharge instructions given to patient, family, Instructed on discharge instructions, follow up and referral plans. Demonstrated understanding of instructions, follow-up care. Signatures: Dispatcher [employer] EDTeresita Wang mr Bayron Beckwith PA PA cp Pisarski, Jacob jp3 Alfredo Olmedo, RN RN ll1
[2020-05-20 14:37] VITALS: BP 138/66; TEMP 97.2; O2SAT 100
== END 2020-05-20 14:14 | disposition home or self-care (01) ==
LOC: ER 10:47
PROC: 0D20XUZ Change Feeding Device in Upper Intestinal Tract, External Approach (ICD-10-PCS; principal; 2020-05-20)
DX: K94.29 Other complications of gastrostomy (principal); I10 Essential (primary) hypertension; Z85.819 Personal history of malignant neoplasm of unspecified site of lip, oral cavity, and pharynx
CPT/HCPCS: 49465; 99283

== ENCOUNTER 2020-05-24 20:19 | Emergency (ER) | payer OTHER ==
--- NOTE | 2020-05-24 21:24 | RAD REPORT ---
EXAM DESCRIPTION: RAD - ENTEROSTOMY TUBE CHECK W/CONTR - 05/24/2020 9:15 pm CLINICAL HISTORY: FEEDING TUBE COMPARISON: ENTEROSTOMY TUBE CHECK W/CONTR dated 05/20/2020 FINDINGS: Two KUB films were obtained prior to and following repositioning or replacement of an ente rostomy tube. The initial image shows contrast in the left-side of the colon. The enterostomy tube is seen in the l eft upper quadrant. On the second image contrast is now present within the lumen of the stomach. No e xtravasation of contrast. IMPRESSION: Retro grade injection via the replaced or repositioned enterostomy tube shows all contra st within the lumen of the stomach.
--- NOTE | 2020-05-24 21:33 | ER ---
Nurse's Notes [facility] Name: Piero Urias Jr Age: 74 yrs Sex: Male : 1945 Arrival Date: 05/24/2020 Time: 20:24 Bed 19 Private MD: Diagnosis: Encounter for attention to gastrostomy Presentation: 05/24 20:34 Chief complaint: Patient states: Feeding tube fell out of abdomen today. Here for ll1 replacement. Same thing happened last Saturday. Coronavirus screen: Client denies travel out of the [place] in the last 14 days. At this time, the client does not indicate any symptoms associated with coronavirus-19. Ebola Screen: Patient denies travel to an Ebola-affected area in the 21 days before illness onset. Initial Sepsis Screen: Does the patient meet any 2 criteria? No. Patient's initial sepsis screen is negative. Risk Assessment: Do you want to hurt yourself or someone else? Patient reports no desire to harm self or others. Onset of symptoms was May 24, 2020. 20:34 Method Of Arrival: Wheelchair ll1 20:34 Acuity: JG 4 ll1 20:40 Initial Sepsis Screen: Does the patient have a suspected source of infection? Yes: Skin vc breakdown/wound. Triage Assessment: 20:40 General: Appears in no apparent distress. comfortable, ill, Behavior is calm, vc cooperative. Pain: Denies pain. Historical: - Allergies: 20:36 No Known Allergies; ll1 - PMHx: 20:36 Hypertension; oral cancer; ll1 - PSHx: 20:36 tongue; PEG tube; ll1 - Immunization history:: Flu vaccine is not up to date. - Social history:: Smoking status: Patient denies any tobacco usage or history of. Patient/guardian denies using alcohol, street drugs. Screenin:40 Abuse screen: Denies threats or abuse. Nutritional screening: No deficits noted. vc Tuberculosis screening: No symptoms or risk factors identified. Fall Risk None identified. Assessment: 20:40 General: Appears in no apparent distress. comfortable, ill, Behavior is cooperative, vc appropriate for age. Pain: Denies pain. Neuro: Level of Consciousness is awake, obeys commands, Oriented to person, place, time, situation, Appropriate for age. Cardiovascular: Patient's skin is warm and dry. Respiratory: No deficits noted. GI: peg tube not in place. Abd is soft Abd is non tender. : No signs and/or symptoms were reported regarding the genitourinary system. Derm: Wound noted Other: drainage noted to peg tube ostomy. 21:35 Reassessment: Patient and/or family updated on plan of care and expected duration. Pain vc level reassessed. Patient is alert, oriented x 3, equal unlabored respirations, skin warm/dry/pink. GI: PEG tube in place, clamped. Site clean. [address] in place. Vital Signs: 20:34 BP 125 / 70; Pulse 84; Resp 18; Temp 98.6; Pulse Ox 95% ; Pain 0/10; ll1 ED Course: 20:24 Patient arrived in ED. cl3 20:33 Alessia Kearney, RN is Primary Nurse. vc 20:35 Triage completed. ll1 20:35 Arm band placed on Patient placed in an exam room, on a stretcher. ll1 20:36 Ronan Monk PA is PHCP. [facility] 20:36 Marco Nieto MD is Attending Physician. [facility] 20:40 Patient has correct armband on for positive identification. Bed in low position. Call vc light in reach. Side rails up X2. Pulse ox on. NIBP on. 21:00 peg tube replacement. vc 21:15 ENTEROSTOMY TUBE CHECK W/CONTR In Process Unspecified. EDMS 21:35 No provider procedures requiring assistance completed. placement of 16 croatian peg tube vc placed at bedside by MICHAEL Dudley. 21:40 Patient did not have IV access during this emergency room visit. vc Administered Medications: No medications were administered Outcome: 21:32 Discharge ordered by . aisha 21:40 Discharged to home via wheelchair, with family. vc 21:40 Condition: good 21:40 Discharge instructions given to patient, Instructed on discharge instructions, follow up and referral plans. Demonstrated understanding of instructions, follow-up care. 21:40 Patient left the ED. vc Signatures: Dispatcher [employer] EDMS Ronan Monk PA PA jmm Lewis, Charde cl3 Alessia Kearney RN RN vc Alfredo Olmedo RN RN ll1 Corrections: (The following items were deleted from the chart) 20:36 20:34 Chief complaint: Patient states: Feeding tube fell out of abdomen today. Here for ll1 replacement. ll1
--- NOTE | 2020-05-24 21:33 | EDPHYS ---
Physician Documentation [facility] Name: Piero Urias Jr Age: 74 yrs Sex: Male : 1945 Arrival Date: 05/24/2020 Time: 20:24 Bed 19 Private MD: ED Physician Marco Nieto HPI: 05/24 20:49 This 74 yrs old Male presents to ER via Wheelchair with complaints of Feeding jmm Tube Out. 20:49 The patient presents with peg tube fell out. Onset: The symptoms/episode began/occurred jm acutely, today, at 13:00. The symptoms do not radiate. Associated signs and symptoms: Pertinent negatives: nausea and vomiting, fever. The patient has experienced similar episodes in the past. Historical: - Allergies: 20:36 No Known Allergies; ll1 - PMHx: 20:36 Hypertension; oral cancer; ll1 - PSHx: 20:36 tongue; PEG tube; ll1 - Immunization history:: Flu vaccine is not up to date. - Social history:: Smoking status: Patient denies any tobacco usage or history of. Patient/guardian denies using alcohol, street drugs. ROS: 20:49 Constitutional: Negative for fever, chills, and weight loss, Cardiovascular: Negative jmm for chest pain, palpitations, and edema, Respiratory: Negative for shortness of breath, cough, wheezing, and pleuritic chest pain, Abdomen/GI: Negative for abdominal pain, nausea, vomiting, diarrhea, and constipation, Neuro: Negative for headache, weakness, numbness, tingling, and seizure. 20:49 All other systems are negative. Exam: 20:49 Constitutional: This is a well developed, well nourished patient who is awake, alert, jmm and in no acute distress. Head/Face: atraumatic. Eyes: EOMI, no conjunctival erythema appreciated ENT: Moist Mucus Membranes Neck: Trachea midline, Supple Chest/axilla: Normal chest wall appearance and motion. Cardiovascular: Regular rate and rhythm. No edema appreciated Respiratory: Normal respirations, no respiratory distress appreciated Abdomen/GI: Non distended, soft Back: Normal ROM Skin: General appearance color normal MS/ Extremity: Moves all extremities, no obvious deformities appreciated, no edema noted to the lower extremities Neuro: Awake and alert, normal gait Psych: Behavior is normal, Mood is normal, Patient is cooperative and pleasant Vital Signs: 20:34 BP 125 / 70; Pulse 84; Resp 18; Temp 98.6; Pulse Ox 95% ; Pain 0/10; ll1 Procedures: 21:43 G-tube placement: a 16 Khmer catheter was placed, by the ED physician, Ronan RODRIGUEZ.aisha MDM: 20:49 Patient medically screened. [facility] 21:31 Data reviewed: vital signs, nurses notes. Counseling: I had a detailed discussion with aisha the patient and/or guardian regarding: the historical points, exam findings, and any diagnostic results supporting the discharge/admit diagnosis, radiology results, the need for outpatient follow up, to return to the emergency department if symptoms worsen or persist or if there are any questions or concerns that arise at home. 05/24 21:13 Order name: ENTEROSTOMY TUBE CHECK W/CONTR; Complete Time: 21:30 EDMS Administered Medications: No medications were administered Disposition: 23:14 Co-signature as Attending Physician, Marco Nieto MD. [email or web address] Disposition: 05/24/20 21:32 Discharged to Home. Impression: Encounter for attention to gastrostomy. - Condition is Stable. - Discharge Instructions: Gastrostomy Tube Replacement. - Medication Reconciliation Form, Thank You Letter, Antibiotic Education, Prescription Opioid Use form. - Follow up: Private Physician; When: 2 - 3 days; Reason: Recheck today's complaints, Continuance of care, Re-evaluation by your physician. Signatures: Dispatcher [employer] [facility] Ronan Monk PA PA jmm Calcote, Vanessa, RN RN vc Lewis, Lynsay, RN RN [facility] Marco Nieto MD MD 7 Corrections: (The following items were deleted from the chart) 21:19 21:17 Abdomen 1 View (KUB)+[id number].[id number] ordered. [facility] 21:40 21:32 05/24/2020 21:32 Discharged to Home. Impression: Encounter for attention to vc gastrostomy. Condition is Stable. Forms are Medication Reconciliation Form, Thank You Letter, Antibiotic Education, Prescription Opioid Use. Follow up: Private Physician; When: 2 - 3 days; Reason: Recheck today's complaints, Continuance of care, Re-evaluation by your physician. aisha
[2020-05-24 22:09] VITALS: BP 125/70; TEMP 98.6; O2SAT 95
== END 2020-05-24 21:40 | disposition home or self-care (01) ==
LOC: ER 20:19
PROC: 0DH67UZ Insertion of Feeding Device into Stomach, Via Natural or Artificial Opening (ICD-10-PCS; principal; 2020-05-24)
DX: Z43.1 Encounter for attention to gastrostomy (principal); I10 Essential (primary) hypertension; Z85.819 Personal history of malignant neoplasm of unspecified site of lip, oral cavity, and pharynx
CPT/HCPCS: 49465; 99283